=== PATIENT | female | born 1990 | race Caucasian/White ===

== ENCOUNTER 2025-01-17 05:39 | Emergency (ER) | payer MEDICAID, SELFPAY ==
[2025-01-17 05:41] VITALS: BP 153/91; PULSE 98; RESP 16; TEMP 37.1; O2SAT 99; BMI 34.9
--- NOTE | 2025-01-17 05:58 | EX.ED.DYSGE1 ---
HPI History of Present Illness Chief Complaint: Cough Informant: patient Narrative Narrative: 34-year-old healthy female presents by EMS from a retirement for coughing. She states she has had a cough for about 2 months. She states this morning someone in retirement offered her albuterol inhaler to try for it, so she took a couple puffs and then she states she could not stop coughing for about 10 minutes and called EMS. She states it is better now. She has had a little bit of runny nose and occasional white sputum production recently. No fevers or chills. She denies any dyspnea even with the hacking cough she was having after the albuterol that she inhaled. She does not have a history of asthma. She states that she is scared to take medications and regrets trying this. She is asking if it was dangerous that she was coughing so hard. She denies any pain anywhere other symptoms. [facility] Medical History Anemia Home Medications ?Medication ?Instructions ?Recorded ?Last Taken ?Type NK 01/17/25 Unknown History Allergy/AdvReac Type Severity Reaction Status Date / Time No Known Allergies Allergy Verified 01/17/25 05:40 Social History Smoking Status: Former smoker ROS ROS ED Constitutional Constitutional ED: Denies chills or fever(s) ENT ENT ED: Reports rhinorrhea; Denies ear pain or sore throat Cardiovascular Cardiovascular: Denies chest pain or palpitations Respiratory/Chest Respiratory/Chest: Reports cough and sputum; Denies dyspnea Gastrointestinal Gastrointestinal: Denies abdominal pain, diarrhea, nausea or vomiting Genitourinary Genitourinary ED: Denies dysuria or hematuria Musculoskeletal Musculoskeletal: Denies myalgias or neck pain Integumentary Denies abscess or rash Neurologic Neurologic: Denies headache(s), paresthesias or weakness Psychiatric Psychiatric: Reports anxiety; Denies depression or suicidal thoughts Endocrine Endocrinology: Denies polydipsia or polyuria EXAM Physical Exam Const Vital Signs: 01/17/25 05:41 01/17/25 05:41 Temperature 98.8 F Temperature Source Oral Pulse Rate 98 Respiratory Rate 16 Respiratory Effort Normal Blood Pressure 153/91 H Blood Pressure Mean 111 Pulse Ox 99 Positive well nourished and well developed Constitutional Narrative: Well-appearing. Conversing in full sentences. Occasional nonproductive cough. General Appearance ED: well developed and NAD HEENT Reports moist mucous membranes normocephalic and atraumatic Throat: Negative for posterior oropharynx abnormal Eyes PERRL and EOMs intact bilaterally Neck no lymphadenopathy, supple and no meningeal signs Resp normal respiratory effort and clear to auscultation bilaterally Cardio no murmurs Rate: regular rate; Negative for tachycardic Rhythm: regular rhythm Neuro oriented x3, CN's II-XII intact bilaterally and no sensory deficits noted Sensorium / Orientation: alert Motor Exam: strength 5/5 throughout Psych Mood & Affect: anxious Skin Lesions: no lesions Rashes: no rashes MDM MDM MDM Narrative Medical decision making narrative: 2 view chest x-ray obtained. It is normal on my interpretation. Her vital signs are normal, her blood pressure is 120/72. I reassured the patient that after albuterol, it is not uncommon to open the airways and have a transient period of increased coughing/bronchospasm. She is reassured. Radiography Diagnostic Testing: Clinical Impression(s) from Imaging Studies Chest X-Ray 01/17/25 06:05 IMPRESSION: No evidence of acute disease Reading Location: [facility] Discharge Plan Triage Chief Complaint: Cough ED Provider: Carlos Montilla Dx/Rx/DC Orders Clinical Impression: Cough, Anxiety Instructions: ED URI, Viral, No Abx (Adult) Prescriptions: No Action NK Primary Care Provider: Care Physician,No [facility] - (call for appt) Print Language: Zambian Disposition Disposition: Home, Self Care
--- NOTE | 2025-01-17 06:05 | RAD_ITS ---
PROCEDURE: CHEST PA AND LATERAL 01/17/2025 REASON FOR EXAM: COUGH TECHNIQUE: Frontal and lateral views of the chest. COMPARISON: None available FINDINGS: The lungs appear clear. Pulmonary vascularity appears within limits. No pneumothorax or pleural effusion. The cardiac and mediastinal contours appear within limits. The visualized osseous structures appear within limits. RAD/Chest PA and Lateral IMPRESSION: No evidence of acute disease Reading Location: [id number]
[2025-01-17 06:28] VITALS: BP 129/73; PULSE 87; RESP 18; TEMP 36.9; O2SAT 97
== END 2025-01-17 06:31 | disposition home or self-care (01) ==
PROVIDERS: Emergency Provider Emergency Medicine; Visit Provider Emergency Medicine
DX: R05.9 Cough, unspecified (principal); F41.9 Anxiety disorder, unspecified; Z87.891 Personal history of nicotine dependence
CPT/HCPCS: 71046; 99284

== ENCOUNTER 2025-01-19 00:06 | Emergency (ER) | payer MEDICAID, SELFPAY ==
[2025-01-19 00:08] VITALS: BP 104/81; PULSE 88; RESP 18; TEMP 37; O2SAT 99; BMI 33.0
[2025-01-19 00:11] VITALS: O2SAT 98
--- NOTE | 2025-01-19 00:58 | EX.ED.DYSGE1 ---
HPI History of Present Illness Chief Complaint: Cough Informant: patient Narrative Narrative: Patient is a 34-year-old female with past medical history of anemia. She states that she has had mild congestion and cough for the past 3 to 5 days. She was seen in the ER roughly 24 hours ago and had a chest x-ray obtained which was normal. She states that despite the normal chest x-ray she has been having persistent cough and sensation of shortness of breath and is feeling extremely anxious. Secondary to the persistent symptoms she presents for reevaluation. She denies any new onset fevers or chills. She denies any chest discomfort or palpitations. She denies any recent surgery travel or history of DVT/PE [facility] Medical History Anemia Home Medications ?Medication ?Instructions ?Recorded ?Last Taken ?Type NK 01/17/25 Unknown History Allergy/AdvReac Type Severity Reaction Status Date / Time hydroxyzine AdvReac Unknown PT UNSURE Verified 01/19/25 00:08 OF REACTION Social History Smoking Status: Former smoker ROS ROS ED Constitutional Constitutional ED: Denies chills or fever(s) Eyes Eyes: Denies change in vision ENT ENT ED: Reports rhinorrhea and sore throat Cardiovascular Cardiovascular: Denies chest pain, palpitations or racing heartbeat Respiratory/Chest Respiratory/Chest: Reports cough and dyspnea Gastrointestinal Gastrointestinal: Denies abdominal pain, diarrhea, nausea or vomiting Genitourinary Genitourinary ED: Denies dysuria Musculoskeletal Musculoskeletal: Denies back pain or myalgias Integumentary Denies rash Neurologic Neurologic: Denies headache(s) Psychiatric Psychiatric: Reports anxiety; Denies suicidal ideation or suicidal thoughts Hematologic/Lymphatic Hematologic/Lymphatic: Denies easy bleeding or easy bruising Allergic/Immunologic Allergic/Immunologic ED: Denies mouth swelling or tongue swelling EXAM Physical Exam Const Vital Signs: 01/19/25 00:08 01/19/25 00:11 Temperature 98.6 F Temperature Source Oral Pulse Rate 88 Respiratory Rate 18 Respiratory Effort Normal Non-Labored Respiratory Depth Normal Respiratory Pattern Normal Blood Pressure 104/81 H Blood Pressure Mean 88 Pulse Ox 99 Oxygen Delivery Method Room Air Room Air Positive well nourished and well developed General Appearance ED: well developed; Negative for pallor HEENT HEENT Narrative: Nasal mucosa is hyperemic and boggy with enlarged inferior nasal turbinate There is cobblestoning noted in the posterior pharynx consistent with sinus drainage without airway edema or compromise No tongue or lip swelling no oral lesions; no secondary findings to suggest infection in the posterior pharynx Bilateral TMs are retracted but show no secondary findings to suggest infection Eyes PERRL and EOMs intact bilaterally General Eye ED: Negative for scleral icterus Neck supple and no JVD Neck Narrative: No nuchal rigidity or meningeal signs Chest Wall palpation of chest normal Resp normal respiratory effort Resp Narrative: Breath sounds are slight diminished throughout with faint expiratory wheeze in the bilateral bases No nasal flaring retractions tachypnea or accessory muscle use. No stridor noted Cardio regular rate and regular rhythm Extremity normal to inspection Extremity Narrative: No asymmetric edema no pitting edema negative Homans' sign bilaterally Neuro oriented x3, CN's II-XII intact bilaterally and no sensory deficits noted Sensorium / Orientation: alert Motor Exam: strength 5/5 throughout Psych Psych Narrative: Patient has a nervous/anxious affect Mood & Affect: anxious Skin no rashes or lesions noted and no wounds General Skin Exam: Negative for jaundice or pallor MDM MDM MDM Narrative Medical decision making narrative: Patient was seen in the ER approximately 24 hours ago. The previous chart was reviewed and chest x-ray at that time revealed no acute lung pathology. She is not in respiratory distress she is not hypoxic or requiring supplemental oxygen. Her physical exam is most consistent with viral URI. Without derangement to her breath sounds or signs of distress I do not feel there is need for repeat x-ray. She does not have risk factors for DVT or PE so do not feel the need for a CT scan. The patient is visibly anxious and I feel this is driving her worsening symptoms. However she is not keen on taking any medication for the anxiety and she does not have homicidal or suicidal ideations and therefore I do not feel she qualifies for psychiatric evaluation at this time. She was instructed that her symptoms are multifactorial and will take time to resolve but as she does not have findings of systemic infection or distress there is no need for workup and she is otherwise safe for discharge History & Record Review Discussion w/independent historian: Patient Discharge Plan Triage Chief Complaint: Cough ED Provider: Dorian Lester Dx/Rx/DC Orders Clinical Impression: Viral upper respiratory tract infection with cough, Anxiety Instructions: ED Anxiety Reaction, ED URI, Viral, No Abx (Adult) Prescriptions: No Action NK Primary Care Provider: Care Physician,No Primary Referrals: Carlos Cade MD [Med Staff - Active Staff] - Care Physician,No Primary [Primary Care Provider] - Activity Restrictions/Additional Instructions: Your history and exam is consistent with a viral upper respiratory tract infection. This will cause nasal congestion sore throat and cough and last on average 2 weeks. It is a virus and needs to run its course and resolve spontaneously antibiotics will not help. You also have breakthrough anxiety which is worsening your symptoms. Try to drink warm fluids and use honey to help coat your throat and reduce your cough. Follow-up with Dr. Cade to discuss antianxiety medication and return to the ER should you have any further concerns Print Language: Serbian Disposition Disposition: Home, Self Care Discharge Date/Time: 01/19/25 01:18
== END 2025-01-19 01:18 | disposition home or self-care (01) ==
PROVIDERS: Emergency Provider Emergency Medicine; Visit Provider Emergency Medicine
DX: J06.9 Acute upper respiratory infection, unspecified (principal); R06.02 Shortness of breath; F41.9 Anxiety disorder, unspecified; Z87.891 Personal history of nicotine dependence
CPT/HCPCS: 99285

== ENCOUNTER 2025-01-25 12:30 | Emergency (ER) | payer MEDICAID, SELFPAY ==
[2025-01-25 12:32] VITALS: BP 139/90; PULSE 96; RESP 18; TEMP 37.2; O2SAT 100; BMI 29.9
[2025-01-25 13:47] VITALS: RESP 16; O2SAT 99
--- NOTE | 2025-01-25 14:15 | EX.ED.DYSGE1 ---
HPI History of Present Illness Chief Complaint: General Illness Detail of Chief Complaint: Patient is a 35-year-old woman. She was seen January 18, 2020 third for uppe Informant: patient Onset/Context/Timing Onset: Days (No appetite for the past 2 days) Context: Sudden Onset Timing: Continuous Quality: No appetite Location: Not applicable Current Severity: Moderate Maximum Severity: Moderate Worsened by: Nothing specific per patient Relieved by: Nothing Associated Symptoms Associated Symptoms: Patient denies being depressed Narrative Narrative: Patient is a 35-year-old woman. Her and her are still but do not live with 1 another. She is [facility] the [facility]. Her 3 children reside with her . She denies smoking or drug use. She told me that she has been here recently. She states they have to be out of the [facility] for 8 hours during the day. They have a schedule with regards to eating and specifically breakfast time, lunch and dinner time. She states she had no interest in eating cereal this morning. She has not eaten in 2 days. She denies headache, visual, ocular auditory symptoms. She does have some mild upper respiratory symptoms and states her symptoms have improved since she was last seen here on the . She was offered Tessalon Perles, which she declined. Patient denies respiratory symptoms other than the cough. She reports palpitations, which concerns her. She denies abdominal pain, nausea vomit or diarrhea. She denies dysuria, frequency, urgency or hematuria. She denies any vaginal symptoms. She states she is on no control. She states is not sexually active. Prior similar symptoms: No Recent Illness/Hospitalization: Yes [facility] Medical History Anemia Home Medications ?Medication ?Instructions ?Recorded ?Last Taken ?Type NK 01/17/25 Unknown History Allergy/AdvReac Type Severity Reaction Status Date / Time hydroxyzine AdvReac Unknown PT UNSURE Verified 01/25/25 12:31 OF REACTION Social History household members: other details: and live together children are with housing: other details: Staying at a [facility] number of children: 3 Smoking Status: Former smoker ROS ROS ED Constitutional Constitutional ED: Reports chills; Denies fever(s), subjective, sweats or weight loss Eyes Eyes: Denies blurry vision or change in vision ENT ENT ED: Denies ear pain or rhinorrhea Cardiovascular Cardiovascular: Reports palpitations; Denies chest pain, orthopnea, paroxysmal nocturnal dyspnea or racing heartbeat Respiratory/Chest Respiratory/Chest: Reports cough; Denies dyspnea, dyspnea on exertion, orthopnea, paroxysmal nocturnal dyspnea or sputum Gastrointestinal Gastrointestinal: Reports other Details: Positive anorexia. ; Denies abdominal pain, constipation, diarrhea, melena, nausea or vomiting Genitourinary Genitourinary ED: Denies dysuria, hematuria or urinary frequency Musculoskeletal Musculoskeletal: Denies arthralgias or myalgias Integumentary Denies abscess or rash Neurologic Neurologic: Reports weakness; Denies headache(s) or paresthesias Psychiatric Psychiatric: Denies anxiety or depression Endocrine Endocrinology: Denies cold intolerance or heat intolerance Hematologic/Lymphatic Hematologic/Lymphatic: Reports systems reviewed and no addt'l complaints, except as documented EXAM Physical Exam Const Vital Signs: 01/25/25 12:32 01/25/25 13:47 Temperature 98.9 F Temperature Source Oral Pulse Rate 96 Respiratory Rate 18 16 Blood Pressure 139/90 H Blood Pressure Mean 106 Pulse Ox 100 99 Oxygen Delivery Method Room Air Room Air Positive well nourished and well developed Constitutional Narrative: BMI is 30. She is slightly fidgety. There was some eye avoidance. General Appearance ED: well developed HEENT Reports dry mucous membranes Mouth ED: Yes dry mucous membranes Mouth: dry mucous membranes Eyes PERRL and EOMs intact bilaterally General Eye ED: Negative for pale conjunctiva or scleral icterus Neck no lymphadenopathy, supple and no JVD Resp normal respiratory effort and clear to auscultation bilaterally Cardio regular rate, regular rhythm, S1 normal heart sound, S2 normal heart sound and no murmurs GI normal to inspection, nondistended, normoactive bowel sounds, non-tender, non-distended and no masses; Negative for hepatosplenomegaly Extremity normal to inspection Neuro oriented x3 and CN's II-XII intact bilaterally Sensorium / Orientation: alert Psych Psych Narrative: Slow psychomotor skills. Speaks softly. Speaks slowly. No suicidal homicidal ideation. Patient states she is anxious regarding the palpitations. Mood & Affect: depressed Skin no rashes or lesions noted, no wounds and skin turgor normal MDM MDM MDM Narrative Medical decision making narrative: Records from the and were reviewed. Case management was consulted by nursing staff. I am in agreement. In my opinion this is most likely depression. Since there is been no blood work to prior visits we will obtain a CBC and competence of metabolic panel to assess for anemia she has a history of anemia as well as renal function, electrolytes and albumin. History & Record Review Additional record(s) reviewed:: Prior ED visit Lab Data Attestation: I reviewed the patient's lab results. Lab results narrative: CBC is unremarkable. Labs: Laboratory Results - last 24 hr 01/25/25 14:45 WBC 9.5 RBC 5.42 H Hgb 14.6 Hct 45.3 MCV 83.6 MCH 26.9 L MCHC 32.2 RDW Std Deviation 42.0 RDW Coeff of Vee 13.8 Plt Count 342 MPV 10.0 Immature Gran % (Auto) 0.300 Neut % (Auto) 67.8 Lymph % (Auto) 25.0 [place] % (Auto) 5.6 Eos % (Auto) 0.8 Baso % (Auto) 0.5 Absolute Neuts (auto) 6.4 Absolute Lymphs (auto) 2.37 Nucleated RBC % 0 Sodium 140 Potassium 4.1 Chloride 105 Carbon Dioxide 20.9 L Anion Gap 14 BUN 18 Creatinine 0.66 L Estim Creat Clear Calc 125.66 Est GFR (MDRD) Non-Af 117 BUN/Creatinine Ratio 26.5 H Glucose 100 H Calcium 10.0 Total Bilirubin 0.47 AST 18 ALT 37 H Alkaline Phosphatase 142 H Total Protein 8.4 Albumin 4.5 Globulin 3.8 Albumin/Globulin Ratio 1.2 Management Discussion w/another healthcare provider: Change Management Lead (Case management briefly saw her. Patient admitted to [facility] that she is hearing voices. She does not have a formal diagnosis of schizoaffective disorder or schizophrenia. She also conveyed that she is very anxious as she did to me.) Additional Tests and Interventions Additional Tests or Interventions: Case management has given her multiple services. Contacted her insurance. There are resources environment that can help her get to her appointments. She is agreement patient needs psychiatric help at this can be done as an outpatient. Discharge Plan Triage Chief Complaint: General Illness ED Provider: Emmanuel Rodas Dx/Rx/DC Orders Clinical Impression: Depression, Viral upper respiratory tract infection with cough, Auditory hallucinations, Elevated blood-pressure reading without diagnosis of hypertension Instructions: ED Depression, ED Hypertension, To Be Confirmed Prescriptions: No Action NK Primary Care Provider: Care Physician,No Primary Referrals: [facility] [Outside] - 1-2 Weeks Care Physician,No Primary [Primary Care Provider] - Activity Restrictions/Additional Instructions: Recommend you contact the [facility] for repeat blood pressure in 1 to 2 weeks. Print Language: Albanian Disposition Disposition: Home, Self Care
[2025-01-25 14:59] LABS: Absolute Lymphocyte Count 2.37 X10^3/uL (0.83-4.51); Absolute Neutrophil Count 6.4 X10^3/uL (2.0-7.7); Basophil# 0.05 X10^3/uL; Basophil% 0.5 % (0-1); Eosinophil# 0.08 X10^3/uL; Eosinophils% 0.8 % (0-5); Hematocrit 45.3 % (37-47); Hemoglobin 14.6 g/dL (12.0-15.0); Lymphocyte # 2.37 X10^3/ul (0.83-4.51); Mean Corp Hgb Conc 32.2 g/dL (32-36); Mean Corpuscular Hgb 26.9 pg (27.0-32.0); Mean Corpuscular Volume 83.6 fL (81-99); Monocyte# 0.53 X10^3/uL; Monocyte% 5.6 % (0-10); NRBC Flagged by Analyzer 0 % (0-5); Neutrophil # 6.42 X10^3/uL (2.7-7.7); Neutrophil % 67.8 % (47-70); Platelet Count 342 K/mm3 (150-450); RBC Distribution Width CV 13.8 % (11.6-14.6); Red Blood Count 5.42 M/mm3 (4.2-5.4); White Blood Count 9.5 K/mm3 (4.4-11.0)
[2025-01-25 15:35] LABS: ALB/GLOB Ratio 1.2 RATIO (0.9-2.4); AST(SGOT) 18 U/L (<=31); Alanine Aminotransfer ALT/SGPT 37 U/L (<=34); Albumin, Serum 4.5 g/dL (3.5-5.0); Alkaline Phosphatase 142 U/L (35-104); Anion Gap 14 (5-15); BUN 18 mg/dL (4-19); BUN/Creat Ratio 26.5 RATIO (10-20); Carbon Dioxide 20.9 mmol/L (21.0-32.0); Chloride 105 mmol/L (98-108); Creatinine, Serum 0.66 mg/dL (0.70-1.20); EST Glomerular Filtration Rate 117 (>60); Estimated Creatinine Clearance 125.66 ml/min (50-250); Globulin 3.8 g/dL (2.2-4.2); Glucose 100 mg/dL (70-99); Potassium 4.1 mmol/L (3.3-5.1); Protein, Total 8.4 g/dL (5.9-8.4); Sodium Level 140 mmol/L (133-145); Total Bilirubin 0.47 mg/dL (0.00-1.30)
[2025-01-25 16:27] VITALS: BP 139/74; PULSE 76; RESP 16; TEMP 37.1; O2SAT 99
--- NOTE | 2025-01-25 21:43 | CM.ED ---
Social Work SW met with patient who told SW that she has been staying at [facility] for the last several weeks. Patient stated before that she had been staying at [facility], prior to that she has stayed with family on and off. Patient tells SW that lately she has not been feeling well, that she has trouble sleeping and eating and that she is feeling anxious. Patient states that she is unsure of why her head feels the way it does and it makes her anxious that she may have a medical condition. Patient also tells social studies department chair that when she goes to the library during the day, she sometimes hears voices in her head that tell her it is time to leave. Patient admits to other auditory hallucinations but denies command hallucinations and states nothing she hears frightens her. Patient states she has heard voices for many years. Patient also states that she is not connected to any mental health resources at this time. Patient states she is willing to start receiving services but transportation is an issue as she does not have a vehicle. SW received permission to call [facility] and speak with them about patient. SW called and was notified that [facility] does not offer any mental health services and they do not have transportation to get to appointments. SW called case management at [facility] to see if they were able to offer any assistance, SW left message requesting a call back. SW then called [employer] who stated that patient would be able to get a bus pass as long as she had an ID and a letter stating she was staying at the [facility]. Patient stated she did have an ID and would be able to go to [employer]. SW printed walking instructions for patient from [facility] to [employer]. [employer] told SW that they had a stop at [facility] which is close to [facility]. SW also printed walking directions from [facility] to [facility] and contact information to [facility] for patient to make an appointment. Patient stated understanding of information given and told SW that she felt she would be able to get a bus pass and get herself an appointment for counseling. No further needs identified at this time. Leydi Oreilly, HYPNOTHERAPIST, RIVETING MACHINE OPERATOR TAPE CONTROL
== END 2025-01-25 16:31 | disposition home or self-care (01) ==
PROVIDERS: Emergency Provider Emergency Medicine; Visit Provider Emergency Medicine
DX: F32.A Depression, unspecified (principal); J06.9 Acute upper respiratory infection, unspecified; R44.0 Auditory hallucinations; R05.9 Cough, unspecified; R03.0 Elevated blood-pressure reading, without diagnosis of hypertension; Z59.01 Sheltered homelessness; Z87.891 Personal history of nicotine dependence
CPT/HCPCS: 80053; 85025; 99284

== ENCOUNTER 2025-01-27 16:28 | Emergency (ER) | payer MEDICAID, SELFPAY ==
[2025-01-27 16:28] VITALS: BP 124/78; PULSE 88; RESP 16; TEMP 36.6; O2SAT 99; BMI 30.6
--- NOTE | 2025-01-27 17:43 | EKG12_ITS ---
Test Reason : PALPITATIONS Blood Pressure : */* mmHG Vent. Rate : 90 BPM Atrial Rate : 90 BPM P-R Int : 154 ms QRS Dur : 74 ms QT Int : 356 ms P-R-T Axes : 55 41 22 degrees QTcB Int : 435 ms Sinus rhythm with sinus arrhythmia with occasional Premature ventricular complexes Otherwise normal ECG Confirmed by LUCY BUTLER, OLU ([id number]), supervising editor news reel CASEY JACOB [id number]) on 01/31/2025 9:15:25 AM Referred By: Confirmed By: OLU AYALA MD
--- NOTE | 2025-01-27 17:44 | EX.ED.DYSGE1 ---
HPI History of Present Illness Chief Complaint: Palpitations Informant: patient Narrative Narrative: 35-year-old female presents with 3 days of intermittent palpitations frequently throughout the day. Feels like a skipped occasionally. She is not associated with any chest pain, syncope, dyspnea. She is anxious and states she is afraid to eat, states it is difficult to chew and swallow food but she cannot say anything about why. It does not feel like it is getting stuck in her esophagus/chest. She denies any systemic symptoms with trying to eat. She states she is a poor appetite and is drinking fluids relatively poorly. She states she has been in and out of shelters and 180 recently because of being homeless, she denies history of psychiatric or addiction issues. She does have a history of depression but is not suicidal at this time. She states that she was afraid to drink fluids because she was not sure if they would hurt her or not because she did not know what was wrong. Some lightheadedness when she stands up and feels like she may be dehydrated, has a dry mouth. [facility] Medical History (Updated 01/27/25 @ 18:[address] Carlos Montilla MD) Elevated blood-pressure reading without diagnosis of hypertension Auditory hallucinations Depression Anemia Home Medications ?Medication ?Instructions ?Recorded ?Last Taken ?Type NK 01/17/25 Unknown History Allergy/AdvReac Type Severity Reaction Status Date / Time hydroxyzine AdvReac Unknown PT UNSURE Verified 01/27/25 16:28 OF REACTION Social History household members: other details: and live together children are with housing: other details: Staying at a jail number of children: 3 Smoking Status: Former smoker ROS ROS ED Constitutional Constitutional ED: Denies chills or fever(s) Eyes Eyes: Denies change in vision or diplopia ENT ENT ED: Reports dry mouth; Denies rhinorrhea or sore throat Cardiovascular Cardiovascular: Reports lightheadedness and palpitations; Denies chest pain Respiratory/Chest Respiratory/Chest: Denies cough or dyspnea Gastrointestinal Gastrointestinal: Denies abdominal pain, diarrhea, nausea or vomiting Genitourinary Genitourinary ED: Denies dysuria, hematuria or urinary frequency Musculoskeletal Musculoskeletal: Denies back pain or neck pain Integumentary Denies abscess or rash Neurologic Neurologic: Denies headache(s), paresthesias or weakness Psychiatric Psychiatric: Reports anxiety; Denies suicidal thoughts EXAM Physical Exam Const Vital Signs: 01/27/25 16:28 01/27/25 18:34 01/27/25 18:34 Temperature 98 F Temperature Source Oral Pulse Rate 88 81 Respiratory Rate 16 20 H Respiratory Effort Normal Non-Labored Blood Pressure 124/78 H 106/87 H Blood Pressure Mean 93 93 Pulse Ox 99 98 Oxygen Delivery Method Room Air Positive well nourished and well developed General Appearance ED: well developed and NAD HEENT Reports moist mucous membranes HEENT Narrative: No stridor or dysphonia normocephalic and atraumatic Eyes PERRL and EOMs intact bilaterally Neck full ROM, no lymphadenopathy, supple and no JVD Resp normal respiratory effort and clear to auscultation bilaterally Cardio regular rate, regular rhythm and no murmurs Rate: Negative for tachycardic GI non-tender and non-distended Auscultation: normoactive bowel sounds Palpation: soft Back/Spine no CVA tenderness General Back: other FROM Extremity normal to inspection General Extremety ED: Negative for edema, pulses abnormal or tenderness General Extremity: Negative for edema or pulses abnormal Neuro oriented x3, CN's II-XII intact bilaterally and no sensory deficits noted Sensorium / Orientation: awake and alert Motor Exam: strength 5/5 throughout Psych Mood & Affect: anxious Skin no rashes or lesions noted and no wounds MDM MDM MDM Narrative Medical decision making narrative: Patient having relatively frequent PVCs on the monitor which is probably the palpitation she is feeling. No dysrhythmia. EKG otherwise normal. Her is negative, obtained because she is feeling poorly and having a hard time describing why. Potassium is low so we are going to give her an oral pill, and gave her half a liter of IV fluids. She was borderline prerenal but otherwise not grossly dehydrated or tachycardic. Vital signs normal. No need for prescription for more potassium or anything else right now, outpatient follow-up advised she stable for discharge home. Lab Data Attestation: I reviewed the patient's lab results. Labs: Laboratory Results - last 24 hr 01/27/25 01/27/25 17:25 17:59 WBC 11.1 H RBC 5.43 H Hgb 14.8 Hct 45.1 MCV 83.1 MCH 27.3 MCHC 32.8 RDW Std Deviation 41.8 RDW Coeff of Vee 13.8 Plt Count 371 MPV 10.9 Immature Gran % (Auto) 0.400 Neut % (Auto) 63.8 Lymph % (Auto) 28.1 [place] % (Auto) 6.4 Eos % (Auto) 0.7 Baso % (Auto) 0.6 Absolute Neuts (auto) 7.1 Absolute Lymphs (auto) 3.13 Nucleated RBC % 0 Sodium 139 Potassium 3.2 L Chloride 103 Carbon Dioxide 22.3 Anion Gap 14 BUN 15 Creatinine 0.76 Estim Creat Clear Calc 110.23 Est GFR (MDRD) Non-Af 105 BUN/Creatinine Ratio 19.2 Glucose 99 Calcium 9.9 Serum , Qual NEGATIVE Urine Color Yellow Urine Clarity Sl. Cloudy Urine pH 5.0 Ur Specific [place] 1.025 Urine Protein 30 H Urine Glucose (UA) Normal Urine Ketones 50 H Urine Occult Blood 25 H Urine Nitrite Negative Urine Bilirubin Negative Urine Urobilinogen 1 H Ur Leukocyte Esterase 25 H Urine RBC 0-5 SEEN Urine WBC 0-5 SEEN Ur Squamous Epith Cells 10-25 SEEN Urine Bacteria 0 SEEN Hyaline Casts 5-10 SEEN Fine Granular Casts 5-10 SEEN Urine Mucus 2+ Rhythm Strip Rhythm Strip: Sinus Rhythm Rate: 80 Ectopy: PVC(s) Discharge Plan Triage Chief Complaint: Palpitations ED Provider: Carlos Montilla Dx/Rx/DC Orders Clinical Impression: Symptomatic PVCs, Acute hypokalemia Instructions: PVCs, ED Hypokalemia Prescriptions: No Action NK Primary Care Provider: Care Physician,No Primary Referrals: Rufina Riley MD [Med Staff - Active Staff] - 3-5 Days if not improving Print Language: Kinyarwanda Disposition Disposition: Home, Self Care
[2025-01-27 18:11] LABS: Bacteria 0 SEEN /hpf (None Seen)
[2025-01-27 18:18] LABS: Internal QC Validated? YES +Cl - CLEAR BKGD; Pregnancy, Serum, hCG Quali. NEGATIVE Negative; Record Kit Lot#, Serum Preg. 929381
[2025-01-27 18:34] VITALS: BP 106/87; PULSE 81; RESP 20; O2SAT 98
[2025-01-27 18:36] LABS: Anion Gap 14 (5-15); BUN 15 mg/dL (4-19); BUN/Creat Ratio 19.2 RATIO (10-20); Calcium,Total 9.9 mg/dL (7.6-11.0); Carbon Dioxide 22.3 mmol/L (21.0-32.0); Chloride 103 mmol/L (98-108); Creatinine, Serum 0.76 mg/dL (0.70-1.20); EST Glomerular Filtration Rate 105 (>60); Estimated Creatinine Clearance 110.23 ml/min (50-250); Glucose 99 mg/dL (70-99); Potassium 3.2 mmol/L (3.3-5.1); Sodium Level 139 mmol/L (133-145)
[2025-01-27 18:41] LABS: Color, Urine Yellow (Yellow); Glucose, Dipstick Normal (Normal); Ketone-Dipstick 50 mg/dl (Negative); Leukocyte Esterase-Dipstick 25 /ul (Negative); Nitrite-Dipstick Negative (Negative); Occult Blood-Urine 25 /ul (Negative); Protein-Dipstick 30 mg/dl (Negative); Specific Gravity, Urine 1.025 (1.002-1.030); Urine Bilirubin Dipstick Negative (Negative); Urine Clarity Sl. Cloudy (Clear); Urine Urobilinogen 1 mg/dl (Normal)
[2025-01-27 19:06] LABS: Mucous, Urine 2+ /hpf (<or=2+); Red Blood Cells-Urine 0-5 SEEN /hpf (0-5); Squamous Epithelial Cells - UA 10-25 SEEN /hpf (5-10); White Blood Cells 0-5 SEEN /hpf (0-5)
[2025-01-27 19:07] LABS: Fine Granular Cast- Urine 5-10 SEEN /lpf (0-5); Hyaline Cast 5-10 SEEN /lpf (0-5)
[2025-01-27 19:08] LABS: Absolute Lymphocyte Count 3.13 X10^3/uL (0.83-4.51); Absolute Neutrophil Count 7.1 X10^3/uL (2.0-7.7); Basophil# 0.07 X10^3/uL; Basophil% 0.6 % (0-1); Eosinophil# 0.08 X10^3/uL; Eosinophils% 0.7 % (0-5); Hematocrit 45.1 % (37-47); Hemoglobin 14.8 g/dL (12.0-15.0); Lymphocyte # 3.13 X10^3/ul (0.83-4.51); Lymphocyte % 28.1 % (19-41); Mean Corp Hgb Conc 32.8 g/dL (32-36); Mean Corpuscular Hgb 27.3 pg (27.0-32.0); Mean Corpuscular Volume 83.1 fL (81-99); Mean Platelet Vol. 10.9 fl (6.2-12.0); Monocyte# 0.71 X10^3/uL; Monocyte% 6.4 % (0-10); NRBC Flagged by Analyzer 0 % (0-5); Neutrophil # 7.09 X10^3/uL (2.7-7.7); Neutrophil % 63.8 % (47-70); Platelet Count 371 K/mm3 (150-450); RBC Distribution Width CV 13.8 % (11.6-14.6); RBC Distribution Width SD 41.8 fl (35.1-43.9); Red Blood Count 5.43 M/mm3 (4.2-5.4); White Blood Count 11.1 K/mm3 (4.4-11.0)
[2025-01-27] MEDS: Potassium Chloride Oral Tablet 20 MEQ 40 MEQ PO (19:24)
[2025-01-27 19:27] VITALS: BP 96/60; PULSE 88; RESP 16; TEMP 36.6; O2SAT 100
== END 2025-01-27 19:27 | disposition home or self-care (01) ==
PROVIDERS: Emergency Provider Emergency Medicine; Visit Provider Emergency Medicine
DX: I49.3 Ventricular premature depolarization (principal); E87.6 Hypokalemia; Z59.01 Sheltered homelessness; Z87.891 Personal history of nicotine dependence
CPT/HCPCS: 80048; 81001; 84703; 85025; 93005; 99285; A4216

== ENCOUNTER → 2025-03-07 | Outpatient (CLI) | payer MEDICAID, SELFPAY ==
[2025-03-07 15:10] LABS: Hemoglobin A1c 5.6 % (<=5.6)
[2025-03-07 15:18] LABS: ALB/GLOB Ratio 1.3 RATIO (0.9-2.4); AST(SGOT) 21 U/L (<=31); Alanine Aminotransfer ALT/SGPT 51 U/L (<=34); Albumin, Serum 4.3 g/dL (3.5-5.0); Alkaline Phosphatase 129 U/L (35-104); Anion Gap 11 (5-15); BUN 14 mg/dL (4-19); BUN/Creat Ratio 19.7 RATIO (10-20); Carbon Dioxide 23.5 mmol/L (21.0-32.0); Chloride 104 mmol/L (98-108); Cholesterol 124 mg/dL (<=200); EST Glomerular Filtration Rate 116 (>60); Ferritin 26 ng/mL (22-378); Globulin 3.2 g/dL (2.2-4.2); Glucose 95 mg/dL (70-99); High Density Lipoprotein 53 mg/dL; Low Density Lipoprotein Calc. 56 mg/dL; Magnesium 2.3 mg/dL (1.5-2.2); Potassium 4.2 mmol/L (3.3-5.1); Protein, Total 7.5 g/dL (5.9-8.4); Sodium Level 139 mmol/L (133-145); Total Bilirubin 0.28 mg/dL (0.00-1.30); Triglycerides 74 mg/dL; Very Low Density Lipoprotein 15 mg/dL (5-40); cholesterol:hdl ratio screen 2.34
== END | disposition home or self-care (01) ==
LOC: VSLAB 12:16
PROVIDERS: PCP Family Medicine; Visit Provider Family Medicine
DX: R00.2 Palpitations (principal)
CPT/HCPCS: 36415; 80053; 80061; 82728; 83036; 83735; 84443

== ENCOUNTER 2025-06-24 20:48 | Emergency (ER) | payer MEDICAID, SELFPAY ==
--- OUTSIDE RECORDS SUMMARY | 2025-06-17 13:01 | XMS RPT_ITS ---
Author Name Auto Generated Organization OHIP Care Team Providers Care Certifier Name Role Phone DAVID JURADO Attending Unavailable SELF, SELF Referring Unavailable DAVID JURADO Primary Care Unavailable DELMA ROBLERO Attending Unavailable NO, PHYSICIAN Primary Care Unavailable NO, PHYSICIAN Primary Care Unavailable MARIVN DEJESUS Attending Un available BINDU FISHER Attending Unavailable PROBLEMS DATE TYPE CONDITION / CODE ATTENDING STATUS [facility] 06/17/2025 Active control counseling / Z30.09(ICD-10) BINDU FISHER Active [facility] 06/17/2025 Active Homelessness / Z59.00(ICD-10) BINDU FISHER Active [facility] 12/18/2024 Admitting diagnosis Headache, unspecified / R51.9(ICD-10) DELMA ROBLERO Active [facility] 12/14/2024 Admitting diagnosis Housing instability, housed unspecified / Z59.819(ICD-10) MARIVN DEJESUS Active [facility] PROCEDURES No Procedure Records Found RESULTS CNPN Observed: 06/20/2025 12:00 AM Status: COMPLETED Source: [facility] Telephone (OBGYWM) VIRGIE CHOU ([id number]) 1990 F Date Time Provider Department 06/20/25 BINDU FISHER During your visit today, we recorded the following information about you: Violet Ramirez RN 06/20/2025 9:32 AM Signed Patient called asking if RX for OCP can be sent to her pharmacy instead of Depo. States she has reservations about starting Depo. Patient is on the nurse schedule today. Please advise. LIZETTE Pulido Jessica, APRN.CNM 06/20/2025 10:41 AM Signed That is fine, we discussed this at her visit. I can send OCP. Would recommend follow up annual and OCP check in 2 months. MARISSA Washington Tara, RN 06/20/2025 11:14 AM Signed Pt notified and voiced understanding. Pt has annual with [facility] on 07/25/25. Pt also advised to schedule appt with PCP as advised per last OV. Pt states she still does not have PCP. Transferred Pt to [facility] to get scheduled. [facility] Pt education sent to Pt with information re: OCP/Sprintec. Advised Pt to use additional form of OCP first month while taking OCP and to take every day at the same time if trying to avoid . Mariel Tai RN Allergies As of Date: 06/20/2025 Noted Allergy Reaction HYDROXYZINE 12/06/2015 12 - Shortness of Breath Comments: Pt states that she had SOB as well as a bumpy, itchy red rash. Date Reviewed: 06/17/2025 Reviewed by: Gege Velasquez MA - Fully Assessed Reason for Visit: Medication Problem [65] Order(s):norgestimate-ethinyl estradiol (SPRINTEC) 0.25-0.035 mg tabletTake 1 tablet by mouth once daily.Disp: 84 tabletRfl: 3 Prescriptions as of 06/20/2025 - norgestimate-ethinyl estradiol (SPRINTEC) 0.25-0.035 mg tablet Take 1 tablet by mouth once daily. - PNV Combo No.47-Iron-FA #1-DHA 27 mg iron-1 mg -300 mg Take 1 capsule by mouth once daily. Problem List As Of Date: 06/20/2025 (None) Prescriptions ordered this encounter Disp Refills Start End NORGESTIMATE 0.25 MG-ETHINYL ESTRADI* 84 t* 3 06/20/2025 Route: PO Sig: Take 1 tablet by mouth once daily. Medications Discontinued During This Encounter Prescriptions - medroxyPROGESTERone 150 mg injection (DEPO-PROVERA) (Discontinued) Encounter Status:Closed by MARIEL TAI on 06/20/25 ИВАН Observed: 06/20/2025 12:00 AM Status: COMPLETED Source: [facility] Telephone (OBGYWM) VIRGIE CHOU ([id number]) 1990 F Date Time Provider Department 06/20/25 BINDU FISHER During your visit today, we recorded the following information about you: Mariel Tai RN 06/20/2025 8:31 AM Signed Depo CAM order pending. Please file for nurse visit scheduled today. LIZETTE Joseph Jessica, APRN.CNM 06/20/2025 9:13 AM Signed Order signed. Thank you , MARISSA Washington Annalee, LPN 06/21/2025 4:26 PM Signed Patient called stating that she started her menses on or and asking when she start her new pack of ocp. Bindu Fisher APRN.CNM 06/21/2025 5:06 PM Signed She can start it now, first day of next menses, or Friday after next menses. Any are fine. MARISSA Washington Trisha, RN 06/22/2025 8:20 AM Signed Patient notified. Trisha Garcia RN Allergies As of Date: 06/20/2025 Noted Allergy Reaction HYDROXYZINE 12/06/2015 12 - Shortness of Breath Comments: Pt states that she had SOB as well as a bumpy, itchy red rash. Date Reviewed: 06/17/2025 Reviewed by: Gege Velasquez MA - Fully Assessed Reason for Visit: Depo nurse visit [Other] Prescriptions as of 06/22/2025 - norgestimate-ethinyl estradiol (SPRINTEC) 0.25-0.035 mg tablet Take 1 tablet by mouth once daily. - PNV Combo No.47-Iron-FA #1-DHA 27 mg iron-1 mg -300 mg Take 1 capsule by mouth once daily. Problem List As Of Date: 06/20/2025 (None) Prescriptions ordered this encounter Disp Refills Start End MEDROXYPROGESTERONE 150 MG/ML INTRAM* 06/20/2025 06/20/2025 Route: IM Encounter Status:Closed by TRISHA GARCIA on 06/22/25 CNOV Observed: 06/17/2025 2:00 PM Status: COMPLETED Source: [facility] Office Visit (OBGYWM) VIRGIE CHOU ([id number]) 1990 F Date Time Provider Department 06/17/25 2:00 PM BINDU FISHER OBGYWM During your visit today, we recorded the following information about you: Blood pressure Weight Height Last Period 112/68 88 kg 1.651 m 06/12/25 Bindu Fisher APRN.CNM 06/17/2025 2:29 PM Signed Obstetrics and Gynecology [place] INVENTORY ANALYST Visit Subjective Recording using Insiders@ Project software for draft documentation of the visit was discussed with the patient/authorized outside medical sales representative; all questions welcomed and answered. Patient/authorized outside medical sales representative agreed to proceed CHIEF COMPLAINT: control consultation HPI: The patient is a 35-year-old female, with a history of prior contraceptive use, presenting for initiation of control. The patient is currently sexually active with a new partner and is not using condoms. She has a desire to avoid at this time. She has a history of using Depo-Provera, which she suspects may have caused depressive symptoms, though she is uncertain. She has been off Depo-Provera for at least 3 months. She also has a history of using oral contraceptive pills and a Mirena IUD, which she discontinued after approximately 6 weeks due to prolonged bleeding lasting 4-5 weeks. She expresses concern about potential side effects of control on her heart, as she has experienced episodes of palpitations described as beating off course, which she finds frightening. She was evaluated in the hospital and was told it was anxiety-related, but has not followed up with a primary care physician. She denies history of migraines with aura, HTN, smoking, drug use, CVA, ME, or thromboembolic events. She is currently at the end of her menstrual period, which started on Friday or Friday, and is now experiencing light, brown discharge. She denies abdominal pain. HISTORY: OB History Gravida4 Para4 Term3 Preterm1 AB0 Living3 SAB0 IAB0 Ectopic0 Multiple0 Live Births3 Nursing Resident History LMP: 06/12/2025 (Exact Date), Having periods Age at Menarche: Age at First : Age at Menopause: Nursing Resident History Comments: Sexual Activity: Yes; Male Contraception: None PAST MEDICAL HISTORY Diagnosis Date Anemia Disorder of thyroid not on any medication right now- was in the past Encounter for blood transfusion 3 units Vitamin D deficiency PAST SURGICAL HISTORY Procedure Laterality Date COLONOSCOPY FAMILY HISTORY Problem Relation Age of Onset Multiple Sclerosis Mother SOCIAL HISTORY[1] Current Outpatient Medications Medication Sig PNV Combo No.47-Iron-FA #1-DHA 27 mg iron-1 mg -300 mg Take 1 capsule by mouth once daily. No current facility-administered medications for this visit. ALLERGIES Allergen Reactions Hydroxyzine Shortness of Breath Pt states that she had SOB as well as a bumpy, itchy red rash. REVIEW OF SYSTEMS: Head: (-) headaches Eyes: (-) vision changes Cardiovascular: (+) palpitations Gastrointestinal: (-) abdominal pain Genitourinary: (+) menstrual bleeding Objective SENSITIVE EXAM: Sensitive exam not performed. PHYSICAL EXAM: BP 112/68 Ht 5' 5 (1.65m) Wt 194 lb (88.0kg) LMP 06/12/2025 BMI 32.28 kg/(m2). GENERAL: Pleasant; in no acute distress BREAST: soft, non-tender, symmetric, no dominant mass, normal nipple-areolar complex, no lymphadenopathy, no nipple discharge PULMONARY: normal inspiratory effort; lungs clear on auscultation ABDOMEN: soft, non-tender, no masses NEURO: alert and oriented x3 EXTREMITIES: normal CARDIOVASCULAR: heart sounds auscultated and normal, no murmurs, rubs, or gallops ASSESSMENT AND PLAN: 1. control counseling (Z30.09) - Discussed contraceptive options, including Depo-Provera, oral contraceptive pills, and vaginal ring; advised against Depo-Provera due to prior mood changes and potential for irregular bleeding, but patient prefers to try it again. Will notify office if ok to start Depo or OCP. Uncertain at this time - Discussed risks and benefits of Depo-Provera, including potential for mood changes, irregular bleeding, and bone loss; recommended calcium and vitamin D supplementation. - Discussed risks of oral contraceptive pills, including increased risk of blood clots, stroke, and heart attack. - Provided education on the importance of consistent use of oral contraceptive pills and vaginal ring. - Discussed the importance of STD testing and recommended urine testing, declines today will possibly get at annual visit. - Discussed the importance of regular follow-up and annual exams, including breast and pelvic exams. - Encouraged patient to follow up with a primary care provider for further evaluation of heart palpitations. 2. Homelessness (Z59.00) Patient is currently residing in a homeless jail with her partner. Bindu Fisher APRN.CNM [1] Social History Tobacco Use Smoking status: Former Types: Cigarettes Smokeless tobacco: Never Vaping Use Vaping status: Never Used Substance Use Topics Alcohol use: Never Drug use: Not Currently Bindu Fisher APRN.CNM 06/17/2025 2:24 PM Signed DEPO-PROVERA control is a way for men and women to prevent . There are many different methods of control; some types also protect against sexually transmitted diseases. Depo-Provera is a control method for women. It is made up of a hormone similar to progesterone and is given as a shot into the woman's arm or buttocks. Each shot provides protection against for up to 14 weeks, but the shot must be received once every 3 months. Depo-Provera does not protect against sexually transmitted diseases. Where can I get Depo-Provera? You must receive the shot from a doctor. The shot is usually given within five days of the beginning of your menstrual period. How is Depo-Provera used? Once the shot has been given, no additional steps are needed to prevent . With Depo-Provera, you must receive another shot once every three months to remain fully protected. How soon does it work? Protection begins immediately after the first shot if given during a menstrual period. How effective is Depo-Provera? Depo-Provera is 99% effective in preventing . Can any woman use Depo-Provera? Most women can use Depo-Provera. However, it is not recommended for women who have: Unexplained vaginal bleeding Liver disease Breast cancer Blood clots Are there side effects associated with Depo-Provera? Depo-Provera can cause a number of side effects, including: Irregular menstrual periods, or no periods at all Headaches Nervousness Depression Dizziness Acne Changes in appetite Weight gain Excessive growth of facial and body hair Hair loss You should discuss the potential side effects of Depo-Provera with your doctor. Most of the side effects are not common. Change in the menstrual cycle is the most common side effect. You may experience irregular bleeding or spotting. After a year of use, about 50% of women will stop getting their periods. Their periods usually return when they discontinue the shots. Can I become after I stop using Depo-Provera? With Depo-Provera, you could become as soon as 12 to 14 weeks after your last shot. It may take some women up to a year or two to conceive after they stop using this type of control. Does Depo-Provera protect against sexually transmitted diseases? No. To help protect yourself from STDs, use a male condom each time you and your partner have sex. What are the advantages of using Depo-Provera? You don't have to remember to take it every day or use it before sex. It provides long-term protection as long as you get the shot every three months. It doesn't interfere with sexual activity. It's over 99% effective. It's less expensive than the Pill. What are the disadvantages of using Depo-Provera? It can cause unwanted side effects. It does not provide protection against sexually transmitted diseases. It can cause irregular menstrual periods. You need to stop taking Depo-Provera several months ahead of time if you plan to become . Regular doctor visits can be inconvenient. ? Copyright 7752-2300 The [facility]. All rights reserved This information is provided by the [facility] and is not intended to replace the medical advice of your doctor or health care provider. Please consult your health care provider for advice about a specific medical condition. For additional written health information, please contact the Health Information Center at the [facility] or toll-free extension [phone]. This document was last reviewed on: 2004 Allergies As of Date: 06/17/2025 Noted Allergy Reaction HYDROXYZINE 12/06/2015 12 - Shortness of Breath Comments: Pt states that she had SOB as well as a bumpy, itchy red rash. Date Reviewed: 06/17/2025 Reviewed by: Gege Velasquez MA - Fully Assessed Reason for Visit: Discussion [813] Primary Visit Diagnosis: control counseling [Z30.09] Other Visit Diagnosis:Homelessness [Z59.00] Order(s):PNV Combo No.47-Iron-FA #1-DHA 27 mg iron-1 mg -300 mgTake 1 capsule by mouth once daily.Disp: 30 capsuleRfl: 11 Prescriptions as of 06/17/2025 - PNV Combo No.47-Iron-FA #1-DHA 27 mg iron-1 mg -300 mg Take 1 capsule by mouth once daily. Problem List As Of Date: 06/17/2025 (None) Other instructions from your clinician: DEPO-PROVERA control is a way for men and women to prevent . There are many different methods of control; some types also protect against sexually transmitted diseases. Depo-Provera is a control method for women. It is made up of a hormone similar to progesterone and is given as a shot into the woman's arm or buttocks. Each shot provides protection against for up to 14 weeks, but the shot must be received once every 3 months. Depo-Provera does not protect against sexually transmitted diseases. Where can I get Depo-Provera? You must receive the shot from a doctor. The shot is usually given within five days of the beginning of your menstrual period. How is Depo-Provera used? Once the shot has been given, no additional steps are needed to prevent . With Depo-Provera, you must receive another shot once every three months to remain fully protected. How soon does it work? Protection begins immediately after the first shot if given during a menstrual period. How effective is Depo-Provera? Depo-Provera is 99% effective in preventing . Can any woman use Depo-Provera? Most women can use Depo-Provera. However, it is not recommended for women who have: Unexplained vaginal bleeding Liver disease Breast cancer Blood clots Are there side effects associated with Depo-Provera? Depo-Provera can cause a number of side effects, including: Irregular menstrual periods, or no periods at all Headaches Nervousness Depression Dizziness Acne Changes in appetite Weight gain Excessive growth of facial and body hair Hair loss You should discuss the potential side effects of Depo-Provera with your doctor. Most of the side effects are not common. Change in the menstrual cycle is the most common side effect. You may experience irregular bleeding or spotting. After a year of use, about 50% of women will stop getting their periods. Their periods usually return when they discontinue the shots. Can I become after I stop using Depo-Provera? With Depo-Provera, you could become as soon as 12 to 14 weeks after your last shot. It may take some women up to a year or two to conceive after they stop using this type of control. Does Depo-Provera protect against sexually transmitted diseases? No. To help protect yourself from STDs, use a male condom each time you and your partner have sex. What are the advantages of using Depo-Provera? You don't have to remember to take it every day or use it before sex. It provides long-term protection as long as you get the shot every three months. It doesn't interfere with sexual activity. It's over 99% effective. It's less expensive than the Pill. What are the disadvantages of using Depo-Provera? It can cause unwanted side effects. It does not provide protection against sexually transmitted diseases. It can cause irregular menstrual periods. You need to stop taking Depo-Provera several months ahead of time if you plan to become . Regular doctor visits can be inconvenient. ? Copyright 4523-9279 The [facility]. All rights reserved This information is provided by the [facility] and is not intended to replace the medical advice of your doctor or health care provider. Please consult your health care provider for advice about a specific medical condition. For additional written health information, please contact the Health Information Center at the [facility] or toll-free extension [phone]. This document was last reviewed on: 2004 Prescriptions ordered this encounter Disp Refills Start End MULTIVITAMIN NO.47-IRON FUM 27 MG-FO* 30 c* 11 06/17/2025 Route: PO Sig: Take 1 capsule by mouth once daily. MEDROXYPROGESTERONE 150 MG/ML INTRAM* 1 mL 3 06/17/2025 06/17/2025 Route: IM Sig: Inject 1 mL intramuscularly every 12 weeks. Disc: Discontinued by Patient Medications Discontinued During This Encounter Prescriptions - medroxyPROGESTERone (DEPO-PROVERA) 150 mg/mL injection (Discontinued) Inject 1 mL intramuscularly every 12 weeks. Disposition: Return for annual . Follow-up and Disposition History for Encounter Date Provider Department Center 06/17/2025 [id number] Status:Closed by BINDU FISHER on 06/17/25 PROGRESS Observed: 06/17/2025 1:51 PM Status: COMPLETED Source: [facility] HNO ID: [id number] Author: BINDU FISHER APRN.CNM Service: ? Author Type: Protective Services Officer Type: Progress Notes Filed: 06/17/2025 14:29 Note Text: Obstetrics and Gynecology [place] INVENTORY ANALYST Visit Subjective Recording using Insiders@ Project software for draft documentation of the visit was discussed with the patient/authorized outside medical sales representative; all questions welcomed and answered. Patient/authorized outside medical sales representative agreed to proceed CHIEF COMPLAINT: control consultation HPI: The patient is a 35-year-old female, with a history of prior contraceptive use, presenting for initiation of control. The patient is currently sexually active with a new partner and is not using condoms. She has a desire to avoid at this time. She has a history of using Depo-Provera, which she suspects may have caused depressive symptoms, though she is uncertain. She has been off Depo-Provera for at least 3 months. She also has a history of using oral contraceptive pills and a Mirena IUD, which she discontinued after approximately 6 weeks due to prolonged bleeding lasting 4-5 weeks. She expresses concern about potential side effects of control on her heart, as she has experienced episodes of palpitations described as beating off course, which she finds frightening. She was evaluated in the hospital and was told it was anxiety-related, but has not followed up with a primary care physician. She denies history of migraines with aura, HTN, smoking, drug use, CVA, ME, or thromboembolic events. She is currently at the end of her menstrual period, which started on Friday or Friday, and is now experiencing light, brown discharge. She denies abdominal pain. HISTORY: OB History Gravida4 Para4 Term3 Preterm1 AB0 Living3 SAB0 IAB0 Ectopic0 Multiple0 Live Births3 Nursing Resident History LMP: 06/12/2025 (Exact Date), Having periods Age at Menarche: Age at First : Age at Menopause: Nursing Resident History Comments: Sexual Activity: Yes; Male Contraception: None PAST MEDICAL HISTORY Diagnosis Date Anemia Disorder of thyroid not on any medication right now- was in the past Encounter for blood transfusion 3 units Vitamin D deficiency PAST SURGICAL HISTORY Procedure Laterality Date COLONOSCOPY FAMILY HISTORY Problem Relation Age of Onset Multiple Sclerosis Mother SOCIAL HISTORY[1] Current Outpatient Medications Medication Sig PNV Combo No.47-Iron-FA #1-DHA 27 mg iron-1 mg -300 mg Take 1 capsule by mouth once daily. No current facility-administered medications for this visit. ALLERGIES Allergen Reactions Hydroxyzine Shortness of Breath Pt states that she had SOB as well as a bumpy, itchy red rash. REVIEW OF SYSTEMS: Head: (-) headaches Eyes: (-) vision changes Cardiovascular: (+) palpitations Gastrointestinal: (-) abdominal pain Genitourinary: (+) menstrual bleeding Objective SENSITIVE EXAM: Sensitive exam not performed. PHYSICAL EXAM: BP 112/68 Ht 5' 5 (1.65m) Wt 194 lb (88.0kg) LMP 06/12/2025 BMI 32.28 kg/(m2). GENERAL: Pleasant; in no acute distress BREAST: soft, non-tender, symmetric, no dominant mass, normal nipple-areolar complex, no lymphadenopathy, no nipple discharge PULMONARY: normal inspiratory effort; lungs clear on auscultation ABDOMEN: soft, non-tender, no masses NEURO: alert and oriented x3 EXTREMITIES: normal CARDIOVASCULAR: heart sounds auscultated and normal, no murmurs, rubs, or gallops ASSESSMENT AND PLAN: 1. control counseling (Z30.09) - Discussed contraceptive options, including Depo-Provera, oral contraceptive pills, and vaginal ring; advised against Depo-Provera due to prior mood changes and potential for irregular bleeding, but patient prefers to try it again. Will notify office if ok to start Depo or OCP. Uncertain at this time - Discussed risks and benefits of Depo-Provera, including potential for mood changes, irregular bleeding, and bone loss; recommended calcium and vitamin D supplementation. - Discussed risks of oral contraceptive pills, including increased risk of blood clots, stroke, and heart attack. - Provided education on the importance of consistent use of oral contraceptive pills and vaginal ring. - Discussed the importance of STD testing and recommended urine testing, declines today will possibly get at annual visit. - Discussed the importance of regular follow-up and annual exams, including breast and pelvic exams. - Encouraged patient to follow up with a primary care provider for further evaluation of heart palpitations. 2. Homelessness (Z59.00) Patient is currently residing in a homeless jail with her partner. Bindu Fisher APRN.TOMÁS [1] Social History Tobacco Use Smoking status: Former Types: Cigarettes Smokeless tobacco: Never Vaping Use Vaping status: Never Used Substance Use Topics Alcohol use: Never Drug use: Not Currently ED PROV NOTE Observed: 12/18/2024 2:21 PM Status: COMPLETED Source: [facility] ED PROVIDER NOTE [facility] EMERGENCY DEPARTMENT NAME: Virgie Chou AGE: 34 y.o. : 1990 VISIT DATE: 12/18/2024 CSN: [id number] PCP: No, Physician Chief Complaint Patient presents with Headache Patient presents to ED voluntarily for evaluation of abnormal feeling in my head. She is currently residing at the [facility]. She is originally from [place]. She was living with her brother after getting out of [facility] and completing her parole, however, she states that her and her brother got into it because he told her that she was eating all the food and that he kicked her out. She then went to live with a friend and apparently that friend was not supposed to have anyone living with her so the landlord kicked both of them out. She states that she then contacted a friend that she was in [place] with that currently resides in [place] and that friend came and picked her up and brought her here to [place] to the [facility] where she has been staying for the last 2 weeks. She established at [facility], she went to 1 appointment but missed her most recent 1 for unknown reasons. She had an interview with Mariam Pretty recently, states that she is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
[2025-06-24 20:48] VITALS: BP 144/101; PULSE 99; RESP 12; TEMP 37.2; O2SAT 99; BMI 32.8
--- NOTE | 2025-06-24 22:16 | EKG12_ITS ---
Test Reason : ANXIETY Blood Pressure : */* mmHG Vent. Rate : 85 BPM Atrial Rate : 85 BPM P-R Int : 174 ms QRS Dur : 80 ms QT Int : 348 ms P-R-T Axes : 39 38 32 degrees QTcB Int : 414 ms Normal sinus rhythm Normal ECG Confirmed by JENNY ADAME ([id number]), newspaper or periodical editor TATUM TAMAYO ([id number]) on 06/27/2025 9:06:30 AM Referred By: Confirmed By: JENNY ADAME
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
[2025-06-24 22:56] VITALS: BP 124/76; PULSE 90; RESP 14; TEMP 36.6; O2SAT 99
== END 2025-06-24 22:56 | disposition home or self-care (01) ==
LOC: ED 22:30
PROVIDERS: Emergency Provider Emergency Medicine; Visit Provider Emergency Medicine
DX: F41.9 Anxiety disorder, unspecified (principal); R00.2 Palpitations; Z87.891 Personal history of nicotine dependence
CPT/HCPCS: 93005; 99282